=== PATIENT | female | born 2000 | race Caucasian/White ===

== ENCOUNTER 2022-05-18 10:55 | Inpatient (IN) | payer SELFPAY ==
[2022-05-18] MEDS ORDERED: Ketorolac 30 MG/ML SDV IVPUSH ONE (11:07)
[2022-05-18] MEDS ORDERED: Albuterol/Ipratropium 3.0-0.5 MG/3 ML Neb Soln NEB ONE ×3 (11:07→13:44)
[2022-05-18] MEDS ORDERED: Sodium Chloride 0.9% 10 ML Syringe FLUSH PRN ×2 (11:08→14:18)
[2022-05-18] MEDS ORDERED: methylPREDNISolone Sodium Succinate 125 MG/2 ML SDV IVPUSH ONE (11:08)
[2022-05-18] MEDS ORDERED: Albuterol/Ipratropium 3.0-0.5 MG/3 ML Neb Soln ONE ×2 (11:10→13:45)
[2022-05-18] MEDS ORDERED: Magnesium Sulfate/Water 2 GM in Premix Bag 1 BAG IV ONE (11:17)
[2022-05-18] MEDS ORDERED: Albuterol 0.083% 2.5 MG/3 ML Neb Soln NEB ONE ×3 (11:35→13:23)
[2022-05-18] MEDS ORDERED: Albuterol 0.083% 2.5 MG/3 ML Neb Soln ONE (11:37)
[2022-05-18 11:56] LABS: ESTIMATED GFR 94 mL/min (>60)
[2022-05-18] MEDS ORDERED: LORazepam 2 MG/ML SDV IVPUSH ONE (12:12)
[2022-05-18 14:08] LABS: CORONAVIRUS COVID-19 NAA NEGATIVE (NEGATIVE)
[2022-05-18] MEDS ORDERED: Iopamidol 755 Mg/ML 100 ML Bottle IVPUSH ONE (14:18)
[2022-05-18] MEDS ORDERED: Sodium Chloride 0.9% 100 ML IV SCH (14:30)
[2022-05-18] MEDS ORDERED: Sodium Chloride 0.9% 1,000 ML IV STA (14:50)
[2022-05-18] MEDS ORDERED: Docusate Sodium 100 MG Cap PO PRN (15:38)
[2022-05-18] MEDS ORDERED: Temazepam 7.5 MG Cap PO PRN (15:38)
[2022-05-18] MEDS ORDERED: Acetaminophen 325 MG Tab PO PRN (15:38)
[2022-05-18] MEDS ORDERED: Morphine 2 MG/ML SYRINGE IVPUSH PRN (15:38)
[2022-05-18] MEDS: Albuterol/Ipratropium 3.0-0.5 MG/3 ML Neb Soln NEB PRN ×2 (16:53→21:08)
[2022-05-18] MEDS: methylPREDNISolone Sodium Succinate 125 MG/2 ML SDV IVPUSH SCH ×2 (17:03→22:01)
[2022-05-18] MEDS: Albuterol 0.083% 2.5 MG/3 ML Neb Soln NEB PRN (18:34)
[2022-05-18] MEDS: LORazepam 2 MG/ML SDV IVPUSH PRN (19:47)
[2022-05-18] MEDS ORDERED: Sodium Chloride 0.9% 1,000 ML ONE (19:56)
[2022-05-18] MEDS: Sodium Chloride 0.9% 1,000 ML IV SCH (19:59)
[2022-05-18] MEDS: Aluminum Hydroxide/Magnesium Hydroxide/Simethicone Susp 30 ML Cup PO PRN (21:40)
[2022-05-19] MEDS: Albuterol 0.083% 2.5 MG/3 ML Neb Soln NEB PRN (00:32)
[2022-05-19] MEDS: LORazepam 2 MG/ML SDV IVPUSH PRN ×4 (00:39→21:50)
[2022-05-19] MEDS: Sodium Chloride 0.9% 1,000 ML IV SCH (03:37)
[2022-05-19] MEDS: methylPREDNISolone Sodium Succinate 125 MG/2 ML SDV IVPUSH SCH ×4 (04:02→23:26)
[2022-05-19] MEDS: Albuterol/Ipratropium 3.0-0.5 MG/3 ML Neb Soln NEB PRN ×5 (04:42→21:36)
[2022-05-19] MEDS ORDERED: Sodium Polystyrene Sulfonate 15 GM/60 ML Susp 60 ML Bot PO ONE (08:00)
[2022-05-19] MEDS: oxyCODONE 5 MG Tab PO PRN ×2 (08:08→16:19)
[2022-05-19] MEDS: Enoxaparin 40 MG/0.4 ML Syringe SUBCUT SCH (08:09)
[2022-05-19] MEDS: Nicotine 14 MG/24 Hr Patch TRDERM SCH (09:56)
[2022-05-20] MEDS: Albuterol/Ipratropium 3.0-0.5 MG/3 ML Neb Soln NEB PRN ×4 (04:02→19:36)
[2022-05-20] MEDS: methylPREDNISolone Sodium Succinate 125 MG/2 ML SDV IVPUSH SCH ×4 (06:04→22:49)
[2022-05-20] MEDS: Enoxaparin 40 MG/0.4 ML Syringe SUBCUT SCH (09:42)
[2022-05-20] MEDS: Nicotine 14 MG/24 Hr Patch TRDERM SCH (09:42)
[2022-05-20] MEDS: Aluminum Hydroxide/Magnesium Hydroxide/Simethicone Susp 30 ML Cup PO PRN (15:08)
[2022-05-20] MEDS: LORazepam 2 MG/ML SDV IVPUSH PRN ×2 (17:50→23:17)
[2022-05-21] MEDS: methylPREDNISolone Sodium Succinate 125 MG/2 ML SDV IVPUSH SCH ×2 (04:18→12:09)
[2022-05-21] MEDS: Aluminum Hydroxide/Magnesium Hydroxide/Simethicone Susp 30 ML Cup PO PRN (04:18)
[2022-05-21] MEDS: Albuterol/Ipratropium 3.0-0.5 MG/3 ML Neb Soln NEB PRN (09:04)
[2022-05-21] MEDS: Enoxaparin 40 MG/0.4 ML Syringe SUBCUT SCH (09:46)
[2022-05-21] MEDS: Nicotine 14 MG/24 Hr Patch TRDERM SCH (09:47)
[2022-05-21] MEDS ORDERED: Albuterol 6.7 GM Inhaler INH PRN (11:14)
[2022-05-21] MEDS: oxyCODONE 5 MG Tab PO PRN (12:22)
[2022-05-22] MEDS ORDERED: predniSONE 10 MG Tab PO SCH (07:00)
== END 2022-05-21 12:55 | disposition home or self-care (01) | DRG 205 ==
LOC: JD.ED 10:55 → JD.ICU 15:46 → JD.MS 05-20 12:51 → JD.ICU 05-20 16:25 → JD.MS 05-20 16:26
PROVIDERS: ADMIT Internal Medicine; ATTEND Internal Medicine
PROC: 5A09357 Assistance with Respiratory Ventilation, Less than 24 Consecutive Hours, Continuous Positive Airway Pressure (ICD-10-PCS; principal; 2022-05-18)
DX: U07.0 Vaping-related disorder (principal); J96.01 Acute respiratory failure with hypoxia; Z68.41 Body mass index [BMI] 40.0-44.9, adult; J45.41 Moderate persistent asthma with (acute) exacerbation; E66.01 Morbid (severe) obesity due to excess calories; F41.9 Anxiety disorder, unspecified; D72.829 Elevated white blood cell count, unspecified; T38.0X5A Adverse effect of glucocorticoids and synthetic analogues, initial encounter; F12.20 Cannabis dependence, uncomplicated; F41.0 Panic disorder [episodic paroxysmal anxiety]; Z20.822 Contact with and (suspected) exposure to COVID-19; Z87.891 Personal history of nicotine dependence; Z79.899 Other long term (current) drug therapy
CPT/HCPCS: 0241U; 36415; 36600; 71045; 71045-26; 71275; 71275-26; 80053; 81001; 82803; 84703; 85025; 85027; 85379; 86140; 94640; 94660; 94760; 96365; 96375; 99285-25; A9270-GY; J1650; J1885; J2060; J2930; J3475; J3490; J7030; J7620-GY; Q9967

== ENCOUNTER 2022-11-08 08:44 | Inpatient (IN) | payer SELFPAY ==
[2022-11-08] MEDS ORDERED: Albuterol/Ipratropium 3.0-0.5 MG/3 ML Neb Soln NEB ONE (09:07)
[2022-11-08] MEDS ORDERED: Albuterol 0.083% 2.5 MG/3 ML Neb Soln NEB ONE ×4 (10:29→13:15)
[2022-11-08] MEDS ORDERED: predniSONE 20 MG Tab PO STA (11:05)
[2022-11-08] MEDS ORDERED: Magnesium Sulfate/Water 2 GM in Premix Bag 1 BAG IV ONE (11:59)
[2022-11-08] MEDS ORDERED: Acetaminophen 325 MG Tab PO PRN (13:03)
[2022-11-08] MEDS ORDERED: Sodium Chloride 0.9% 10 ML Syringe FLUSH PRN (13:03)
[2022-11-08 14:08] LABS: BASOPHILS ABSOLUTE AUTO 0.1 K/mm3 (0.0-0.2); BASOPHILS PERCENT AUTO 0.9 % (0.0-1.0); EOSINOPHILS PERCENT AUTO 9.6 % (0.0-6.0); HEMATOCRIT 41.2 % (37.0-47.0); HEMOGLOBIN 14.3 gm/dl (12.0-16.0); IMMATURE GRAN ABSOLUTE AUTO 0.02 K/mm3 (0.00-0.05); IMMATURE GRAN PERCENT AUTO 0.2 % (0.0-0.4); LYMPHOCYTES ABSOLUTE AUTO 1.8 K/mm3 (1.0-4.8); LYMPHOCYTES PERCENT AUTO 18.4 % (24.0-44.0); MEAN CORPUSCULAR HEMOGLOBIN 30.6 pg (28.0-32.0); MEAN CORPUSCULAR HGB CONC 34.7 g/dl (32.0-36.0); MEAN CORPUSCULAR VOLUME 88.2 fl (83.0-99.0); MEAN PLATELET VOLUME 9.4 fl (9.4-12.3); MONOCYTES ABSOLUTE AUTO 0.6 K/mm3 (0.0-0.8); MONOCYTES PERCENT AUTO 6.4 % (0.0-8.0); NEUTROPHILS ABSOLUTE AUTO 6.4 K/mm3 (1.8-7.7); NEUTROPHILS PERCENT AUTO 64.5 % (41.0-71.0); PLATELET COUNT,PLT 325 K/mm3 (150-400); RED BLOOD CELL COUNT 4.67 M/mm3 (4.10-5.30); WHITE BLOOD CELL COUNT,WBC 9.91 K/mm3 (3.9-11.3)
[2022-11-08 14:17] LABS: A/G RATIO 1.3 (1-2); ALBUMIN 3.9 g/dl (3.4-5.0); ANION GAP 13.9 (5-15); BUN/CREATININE RATIO 7.5 (14-18); CALCIUM 8.9 mg/dL (8.5-10.1); CREATININE 0.8 mg/dL (0.55-1.02); EST CRCL DRUG DOSING (CG) 100.1 mL/min; POTASSIUM,K 3.9 mEq/L (3.5-5.1)
[2022-11-08 14:26] LABS: HEMOGLOBIN A1C 5.5 %
[2022-11-08] MEDS: methylPREDNISolone Sodium Succinate 125 MG/2 ML SDV IVPUSH SCH ×2 (14:37→19:47)
[2022-11-08] MEDS: Mometasone Furoate HFA 200 mcg/Puff 13 GM Inhaler INH SCH ×2 (15:02→20:32)
[2022-11-08] MEDS: Albuterol/Ipratropium 3.0-0.5 MG/3 ML Neb Soln NEB SCH ×2 (15:02→20:31)
[2022-11-08] MEDS: Nicotine 14 MG/24 Hr Patch TRDERM SCH (16:43)
[2022-11-08] MEDS ORDERED: Betamethasone Dipropionate/Clotrimazole 0.05-1% Crm 15 GM Tube TOP SCH (18:00)
[2022-11-09] MEDS: Albuterol/Ipratropium 3.0-0.5 MG/3 ML Neb Soln NEB SCH ×4 (03:02→20:43)
[2022-11-09] MEDS: methylPREDNISolone Sodium Succinate 125 MG/2 ML SDV IVPUSH SCH ×4 (03:33→21:27)
[2022-11-09] MEDS: Mometasone Furoate HFA 200 mcg/Puff 13 GM Inhaler INH SCH ×2 (05:26→20:50)
[2022-11-09 05:58] LABS: BASOPHILS PERCENT AUTO 0.1 % (0.0-1.0); HEMATOCRIT 39.6 % (37.0-47.0); HEMOGLOBIN 14.1 gm/dl (12.0-16.0); IMMATURE GRAN ABSOLUTE AUTO 0.15 K/mm3 (0.00-0.05); IMMATURE GRAN PERCENT AUTO 0.8 % (0.0-0.4); LYMPHOCYTES ABSOLUTE AUTO 0.7 K/mm3 (1.0-4.8); LYMPHOCYTES PERCENT AUTO 3.8 % (24.0-44.0); MEAN CORPUSCULAR HEMOGLOBIN 30.7 pg (28.0-32.0); MEAN CORPUSCULAR HGB CONC 35.6 g/dl (32.0-36.0); MEAN CORPUSCULAR VOLUME 86.1 fl (83.0-99.0); MEAN PLATELET VOLUME 9.6 fl (9.4-12.3); MONOCYTES ABSOLUTE AUTO 0.2 K/mm3 (0.0-0.8); MONOCYTES PERCENT AUTO 1.2 % (0.0-8.0); NEUTROPHILS ABSOLUTE AUTO 18.3 K/mm3 (1.8-7.7); NEUTROPHILS PERCENT AUTO 94.1 % (41.0-71.0); PLATELET COUNT,PLT 303 K/mm3 (150-400); WHITE BLOOD CELL COUNT,WBC 19.42 K/mm3 (3.9-11.3)
[2022-11-09 06:14] LABS: ANION GAP 16.2 (5-15); CREATININE 0.7 mg/dL (0.55-1.02); EST CRCL DRUG DOSING (CG) 114.4 mL/min; POTASSIUM,K 4.2 mEq/L (3.5-5.1)
[2022-11-09 06:45] LABS: SLIDE REVIEW ABNORMAL SMEAR
[2022-11-09] MEDS: Enoxaparin 40 MG/0.4 ML Syringe SUBCUT SCH (08:45)
[2022-11-09] MEDS: Betamethasone Dipropionate/Clotrimazole 0.05-1% Crm 15 GM Tube TOP SCH ×3 (09:57→21:38)
[2022-11-09] MEDS ORDERED: Calcium Carbonate 500 MG Tab.Chew PO PRN (11:46)
[2022-11-09] MEDS: Nicotine 14 MG/24 Hr Patch TRDERM SCH (16:07)
[2022-11-09] MEDS: Amoxicillin 500 MG Cap PO SCH ×2 (16:20→21:27)
[2022-11-09] MEDS: Saccharomyces Boulardii (Probiotic) 250 MG Cap PO SCH (21:27)
[2022-11-10] MEDS: Albuterol/Ipratropium 3.0-0.5 MG/3 ML Neb Soln NEB SCH ×2 (04:12→08:55)
[2022-11-10] MEDS: Mometasone Furoate HFA 200 mcg/Puff 13 GM Inhaler INH SCH (06:16)
[2022-11-10 06:41] LABS: BASOPHILS PERCENT AUTO 0.1 % (0.0-1.0); HEMATOCRIT 40.9 % (37.0-47.0); HEMOGLOBIN 14.1 gm/dl (12.0-16.0); IMMATURE GRAN ABSOLUTE AUTO 0.32 K/mm3 (0.00-0.05); IMMATURE GRAN PERCENT AUTO 1.4 % (0.0-0.4); LYMPHOCYTES PERCENT AUTO 4.5 % (24.0-44.0); MEAN CORPUSCULAR HEMOGLOBIN 31.1 pg (28.0-32.0); MEAN CORPUSCULAR HGB CONC 34.5 g/dl (32.0-36.0); MEAN CORPUSCULAR VOLUME 90.1 fl (83.0-99.0); MEAN PLATELET VOLUME 9.8 fl (9.4-12.3); MONOCYTES ABSOLUTE AUTO 0.6 K/mm3 (0.0-0.8); MONOCYTES PERCENT AUTO 2.6 % (0.0-8.0); NEUTROPHILS ABSOLUTE AUTO 20.9 K/mm3 (1.8-7.7); NEUTROPHILS PERCENT AUTO 91.4 % (41.0-71.0); PLATELET COUNT,PLT 318 K/mm3 (150-400); RED BLOOD CELL COUNT 4.54 M/mm3 (4.10-5.30); WHITE BLOOD CELL COUNT,WBC 22.83 K/mm3 (3.9-11.3)
[2022-11-10 06:59] LABS: ANION GAP 16.1 (5-15); BUN/CREATININE RATIO 17.5 (14-18); CALCIUM 9.1 mg/dL (8.5-10.1); CREATININE 0.8 mg/dL (0.55-1.02); EST CRCL DRUG DOSING (CG) 100.1 mL/min; POTASSIUM,K 4.1 mEq/L (3.5-5.1)
[2022-11-10] MEDS ORDERED: predniSONE 20 MG Tab PO SCH (07:00)
[2022-11-10 07:15] LABS: SLIDE REVIEW ABNORMAL SMEAR
[2022-11-10] MEDS: Amoxicillin 500 MG Cap PO SCH (08:13)
[2022-11-10] MEDS: Enoxaparin 40 MG/0.4 ML Syringe SUBCUT SCH (08:13)
[2022-11-10] MEDS: Betamethasone Dipropionate/Clotrimazole 0.05-1% Crm 15 GM Tube TOP SCH (08:13)
[2022-11-10] MEDS: Saccharomyces Boulardii (Probiotic) 250 MG Cap PO SCH (08:13)
[2022-11-10] MEDS: Nicotine 14 MG/24 Hr Patch TRDERM SCH (17:20)
== END 2022-11-10 12:50 | disposition home or self-care (01) | DRG 202 ==
LOC: JD.ED 08:44 → JD.MS 14:13
PROVIDERS: ADMIT Emergency Medicine; ATTEND Emergency Medicine
DX: J45.51 Severe persistent asthma with (acute) exacerbation (principal); Z68.41 Body mass index [BMI] 40.0-44.9, adult; F17.210 Nicotine dependence, cigarettes, uncomplicated; E66.01 Morbid (severe) obesity due to excess calories; L30.8 Other specified dermatitis; F41.9 Anxiety disorder, unspecified; F32.A Depression, unspecified; Z20.822 Contact with and (suspected) exposure to COVID-19; Z79.51 Long term (current) use of inhaled steroids; Z79.899 Other long term (current) drug therapy
CPT/HCPCS: 36415; 80048; 80053; 83036; 83735; 85025; 87070; 87077; 87186; 87205; 87804; 87807; 94640; 94761; 94762; 96365; 96366; 99285; 99285-25; A9270-GY; J1650; J2930; J3475; J7512; J7620-GY; U0002

== ENCOUNTER 2022-12-02 23:38 | Emergency (ER) | payer BC ==
[2022-12-03] MEDS ORDERED: predniSONE 10 MG Tab PO ONE ×2 (00:06→04:34)
[2022-12-03] MEDS ORDERED: Albuterol/Ipratropium 3.0-0.5 MG/3 ML Neb Soln NEB ONE (00:06)
[2022-12-03] MEDS ORDERED: Albuterol 0.083% 2.5 MG/3 ML Neb Soln NEB ONE ×2 (00:40→02:30)
[2022-12-03] MEDS ORDERED: Albuterol 6.7 GM Inhaler INH ONE (01:01)
[2022-12-03 01:51] LABS: CORONAVIRUS COVID-19 NAA NEGATIVE (NEGATIVE); INFLUENZA A NAA NEGATIVE (NEGATIVE); RESPIRATORY SYNCYTIAL VIR NAA NEGATIVE (NEGATIVE)
== END 2022-12-03 04:48 | disposition home or self-care (01) ==
LOC: JD.ED 23:38
DX: J45.909 Unspecified asthma, uncomplicated (principal); E66.9 Obesity, unspecified; Z68.41 Body mass index [BMI] 40.0-44.9, adult; Z87.891 Personal history of nicotine dependence; Z20.822 Contact with and (suspected) exposure to COVID-19
CPT/HCPCS: 0241U; 71046; 94640; 99285; A9270; J7512; 99284; J7620-GY

== ENCOUNTER 2022-12-18 04:55 | Inpatient (IN) | payer BC ==
[2022-12-18] MEDS ORDERED: Sodium Chloride 0.9% 10 ML Syringe FLUSH PRN (05:10)
[2022-12-18] MEDS ORDERED: methylPREDNISolone Sodium Succinate 125 MG/2 ML SDV IVPUSH ONE (05:16)
[2022-12-18] MEDS: Albuterol 0.083% 2.5 MG/3 ML Neb Soln NEB PRN ×5 (05:35→20:30)
[2022-12-18 05:44] LABS: BASOPHILS ABSOLUTE AUTO 0.1 K/mm3 (0.0-0.2); BASOPHILS PERCENT AUTO 0.4 % (0.0-1.0); EOSINOPHILS ABSOLUTE AUTO 0.7 K/mm3 (0.0-0.4); EOSINOPHILS PERCENT AUTO 5.1 % (0.0-6.0); HEMATOCRIT 44.1 % (37.0-47.0); HEMOGLOBIN 15.3 gm/dl (12.0-16.0); IMMATURE GRAN ABSOLUTE AUTO 0.04 K/mm3 (0.00-0.05); IMMATURE GRAN PERCENT AUTO 0.3 % (0.0-0.4); LYMPHOCYTES ABSOLUTE AUTO 0.8 K/mm3 (1.0-4.8); LYMPHOCYTES PERCENT AUTO 6.2 % (24.0-44.0); MEAN CORPUSCULAR HEMOGLOBIN 31.3 pg (28.0-32.0); MEAN CORPUSCULAR HGB CONC 34.7 g/dl (32.0-36.0); MEAN CORPUSCULAR VOLUME 90.2 fl (83.0-99.0); MEAN PLATELET VOLUME 9.2 fl (9.4-12.3); MONOCYTES ABSOLUTE AUTO 0.7 K/mm3 (0.0-0.8); MONOCYTES PERCENT AUTO 4.8 % (0.0-8.0); NEUTROPHILS ABSOLUTE AUTO 11.3 K/mm3 (1.8-7.7); NEUTROPHILS PERCENT AUTO 83.2 % (41.0-71.0); PLATELET COUNT,PLT 236 K/mm3 (150-400); RED BLOOD CELL COUNT 4.89 M/mm3 (4.10-5.30); WHITE BLOOD CELL COUNT,WBC 13.62 K/mm3 (3.9-11.3)
[2022-12-18 05:55] LABS: A/G RATIO 1.2 (1-2); BILIRUBIN TOTAL 0.9 mg/dL (0.2-1.0); BUN/CREATININE RATIO 15.6 (14-18); CALCIUM 8.8 mg/dL (8.5-10.1); CREATININE 0.9 mg/dL (0.55-1.02); EST CRCL DRUG DOSING (CG) 99.74 mL/min; MAGNESIUM 1.6 mg/dL (1.8-2.4); PROTEIN TOTAL,TP 7.4 g/dl (6.4-8.2)
[2022-12-18 06:00] LABS: CORONAVIRUS COVID-19 NAA NEGATIVE (NEGATIVE); INFLUENZA A NAA NEGATIVE (NEGATIVE); RESPIRATORY SYNCYTIAL VIR NAA NEGATIVE (NEGATIVE)
[2022-12-18] MEDS ORDERED: Magnesium Sulfate/Water 2 GM in Premix Bag 1 BAG IV ONE (06:56)
[2022-12-18] MEDS: Albuterol/Ipratropium 3.0-0.5 MG/3 ML Neb Soln NEB PRN ×4 (07:00→22:14)
[2022-12-18] MEDS ORDERED: Acetaminophen 325 MG Tab PO ONE (07:08)
[2022-12-18] MEDS ORDERED: Metoclopramide 10 MG/2 ML SDV IVPUSH ONE (07:09)
[2022-12-18] MEDS ORDERED: Albuterol/Ipratropium 3.0-0.5 MG/3 ML Neb Soln NEB ONE (07:51)
[2022-12-18] MEDS ORDERED: Albuterol/Ipratropium 3.0-0.5 MG/3 ML Neb Soln NEB PRN (07:55)
[2022-12-18] MEDS ORDERED: Albuterol 0.083% 2.5 MG/3 ML Neb Soln NEB ONE (07:57)
[2022-12-18] MEDS: Heparin Sodium 5,000 Units/ML Vial SUBCUT SCH ×2 (10:53→17:29)
[2022-12-18] MEDS: methylPREDNISolone Sodium Succinate 125 MG/2 ML SDV IVPUSH SCH ×2 (10:53→17:29)
[2022-12-18] MEDS ORDERED: LORazepam 0.5 MG Tab PO ONE (11:55)
[2022-12-18] MEDS: Nicotine 14 MG/24 Hr Patch TRDERM SCH (12:07)
[2022-12-18 13:46] LABS: BASE EXCESS ARTERIAL -8.4 (-2-2.0); BICARBONATE,ARTERIAL 15.8 meq/L (22.0-26.0); PCO2 ARTERIAL 30.4 mmHg (35.0-45.0)
[2022-12-18] MEDS: LORazepam 2 MG/ML SDV IVPUSH PRN ×2 (14:09→19:52)
[2022-12-18] MEDS: Mometasone Furoate HFA 200 mcg/Puff 13 GM Inhaler INH SCH (20:29)
[2022-12-18] MEDS: Saccharomyces Boulardii (Probiotic) 250 MG Cap PO SCH (21:02)
[2022-12-18] MEDS ORDERED: LORazepam 1 MG Tab PO ONE (22:09)
[2022-12-18] MEDS: Acetaminophen 325 MG Tab PO PRN (22:18)
[2022-12-19] MEDS: Albuterol 0.083% 2.5 MG/3 ML Neb Soln NEB PRN ×2 (00:39→05:46)
[2022-12-19] MEDS: Heparin Sodium 5,000 Units/ML Vial SUBCUT SCH ×3 (02:56→17:22)
[2022-12-19] MEDS: methylPREDNISolone Sodium Succinate 125 MG/2 ML SDV IVPUSH SCH ×3 (02:56→17:22)
[2022-12-19] MEDS: LORazepam 2 MG/ML SDV IVPUSH PRN ×4 (02:56→23:47)
[2022-12-19] MEDS: Albuterol/Ipratropium 3.0-0.5 MG/3 ML Neb Soln NEB PRN (03:24)
[2022-12-19] MEDS: Mometasone Furoate HFA 200 mcg/Puff 13 GM Inhaler INH SCH ×2 (05:46→19:59)
[2022-12-19 06:32] LABS: HEMATOCRIT 40.1 % (37.0-47.0); HEMOGLOBIN 13.9 gm/dl (12.0-16.0); MEAN CORPUSCULAR HEMOGLOBIN 30.4 pg (28.0-32.0); MEAN CORPUSCULAR HGB CONC 34.7 g/dl (32.0-36.0); MEAN CORPUSCULAR VOLUME 87.7 fl (83.0-99.0); MEAN PLATELET VOLUME 9.7 fl (9.4-12.3); PLATELET COUNT,PLT 253 K/mm3 (150-400); RED BLOOD CELL COUNT 4.57 M/mm3 (4.10-5.30); WHITE BLOOD CELL COUNT,WBC 21.97 K/mm3 (3.9-11.3)
[2022-12-19 07:04] LABS: A/G RATIO 1.1 (1-2); ALBUMIN 3.9 g/dl (3.4-5.0); ANION GAP 17.3 (5-15); BUN/CREATININE RATIO 18.8 (14-18); CALCIUM 9.1 mg/dL (8.5-10.1); CREATININE 0.8 mg/dL (0.55-1.02); EST CRCL DRUG DOSING (CG) 100.1 mL/min; POTASSIUM,K 4.3 mEq/L (3.5-5.1); PROTEIN TOTAL,TP 7.5 g/dl (6.4-8.2)
[2022-12-19] MEDS ORDERED: Ipratropium 0.02% 0.5 MG/2.5 ML Neb Soln ONE (08:20)
[2022-12-19] MEDS ORDERED: Levalbuterol HCl 1.25 MG/0.5 ML Neb ONE (08:20)
[2022-12-19] MEDS: Ipratropium 0.02% 0.5 MG/2.5 ML Neb Soln NEB PRN ×2 (08:22→12:49)
[2022-12-19] MEDS: Levalbuterol HCl 1.25 MG/3 ML Neb NEB PRN ×6 (08:23→23:15)
[2022-12-19] MEDS: Loratadine 10 MG Tab PO SCH (08:28)
[2022-12-19] MEDS: Montelukast 10 MG Tab PO SCH (08:28)
[2022-12-19] MEDS: Saccharomyces Boulardii (Probiotic) 250 MG Cap PO SCH ×2 (08:28→20:31)
[2022-12-19] MEDS ORDERED: Sodium Chloride 0.9% 10 ML Syringe FLUSH PRN (08:47)
[2022-12-19] MEDS ORDERED: Iopamidol 755 Mg/ML 100 ML Bottle IVPUSH ONE (08:47)
[2022-12-19] MEDS ORDERED: Sodium Chloride 0.9% 45 ML IV SCH (09:00)
[2022-12-19] MEDS: Nicotine 14 MG/24 Hr Patch TRDERM SCH (12:36)
[2022-12-19] MEDS: cefTRIAXone 2 GM in Sodium Chloride 0.9% 100 ML IV SCH (13:26)
[2022-12-19] MEDS ORDERED: Temazepam 15 MG Cap PO ONE (20:17)
[2022-12-20] MEDS: methylPREDNISolone Sodium Succinate 125 MG/2 ML SDV IVPUSH SCH ×3 (03:02→18:11)
[2022-12-20] MEDS: Heparin Sodium 5,000 Units/ML Vial SUBCUT SCH ×3 (03:02→18:11)
[2022-12-20] MEDS: Ipratropium 0.02% 0.5 MG/2.5 ML Neb Soln NEB PRN ×4 (03:26→20:15)
[2022-12-20] MEDS: Levalbuterol HCl 1.25 MG/3 ML Neb NEB PRN ×5 (05:26→18:13)
[2022-12-20] MEDS: Mometasone Furoate HFA 200 mcg/Puff 13 GM Inhaler INH SCH ×2 (05:30→20:15)
[2022-12-20 06:11] LABS: BASOPHILS PERCENT AUTO 0.1 % (0.0-1.0); HEMATOCRIT 39.1 % (37.0-47.0); HEMOGLOBIN 13.5 gm/dl (12.0-16.0); IMMATURE GRAN ABSOLUTE AUTO 0.23 K/mm3 (0.00-0.05); LYMPHOCYTES ABSOLUTE AUTO 0.7 K/mm3 (1.0-4.8); LYMPHOCYTES PERCENT AUTO 3.3 % (24.0-44.0); MEAN CORPUSCULAR HEMOGLOBIN 30.8 pg (28.0-32.0); MEAN CORPUSCULAR HGB CONC 34.5 g/dl (32.0-36.0); MEAN CORPUSCULAR VOLUME 89.1 fl (83.0-99.0); MEAN PLATELET VOLUME 9.8 fl (9.4-12.3); MONOCYTES ABSOLUTE AUTO 0.6 K/mm3 (0.0-0.8); MONOCYTES PERCENT AUTO 2.7 % (0.0-8.0); NEUTROPHILS ABSOLUTE AUTO 20.6 K/mm3 (1.8-7.7); NEUTROPHILS PERCENT AUTO 92.9 % (41.0-71.0); PLATELET COUNT,PLT 242 K/mm3 (150-400); RED BLOOD CELL COUNT 4.39 M/mm3 (4.10-5.30); WHITE BLOOD CELL COUNT,WBC 22.25 K/mm3 (3.9-11.3)
[2022-12-20 06:31] LABS: ALBUMIN 3.5 g/dl (3.4-5.0); ANION GAP 15.3 (5-15); BILIRUBIN TOTAL 0.7 mg/dL (0.2-1.0); C-REACTIVE PROTEIN 2.3 mg/dL (<1.0); CALCIUM 8.9 mg/dL (8.5-10.1); CREATININE 0.8 mg/dL (0.55-1.02); EST CRCL DRUG DOSING (CG) 100.1 mL/min; POTASSIUM,K 4.3 mEq/L (3.5-5.1)
[2022-12-20 06:56] LABS: SLIDE REVIEW ABNORMAL SMEAR
[2022-12-20] MEDS: Saccharomyces Boulardii (Probiotic) 250 MG Cap PO SCH ×2 (08:02→20:30)
[2022-12-20] MEDS: Montelukast 10 MG Tab PO SCH (08:02)
[2022-12-20] MEDS: Loratadine 10 MG Tab PO SCH (08:02)
[2022-12-20] MEDS: LORazepam 2 MG/ML SDV IVPUSH PRN ×2 (08:22→17:07)
[2022-12-20] MEDS: cefTRIAXone 2 GM in Sodium Chloride 0.9% 100 ML IV SCH (12:31)
[2022-12-20] MEDS: Nicotine 14 MG/24 Hr Patch TRDERM SCH (12:32)
[2022-12-20] MEDS: Temazepam 15 MG Cap PO PRN (20:30)
[2022-12-21] MEDS: methylPREDNISolone Sodium Succinate 125 MG/2 ML SDV IVPUSH SCH ×3 (02:21→18:13)
[2022-12-21] MEDS: Heparin Sodium 5,000 Units/ML Vial SUBCUT SCH ×3 (02:21→18:13)
[2022-12-21] MEDS: Levalbuterol HCl 1.25 MG/3 ML Neb NEB PRN ×6 (02:36→20:43)
[2022-12-21] MEDS: Mometasone Furoate HFA 200 mcg/Puff 13 GM Inhaler INH SCH ×2 (05:43→20:43)
[2022-12-21 06:11] LABS: BASOPHILS PERCENT AUTO 0.1 % (0.0-1.0); EOSINOPHILS PERCENT AUTO 0.1 % (0.0-6.0); HEMATOCRIT 39.9 % (37.0-47.0); HEMOGLOBIN 13.5 gm/dl (12.0-16.0); IMMATURE GRAN ABSOLUTE AUTO 0.15 K/mm3 (0.00-0.05); IMMATURE GRAN PERCENT AUTO 0.9 % (0.0-0.4); LYMPHOCYTES ABSOLUTE AUTO 0.7 K/mm3 (1.0-4.8); MEAN CORPUSCULAR HGB CONC 33.8 g/dl (32.0-36.0); MEAN CORPUSCULAR VOLUME 91.5 fl (83.0-99.0); MEAN PLATELET VOLUME 9.4 fl (9.4-12.3); MONOCYTES ABSOLUTE AUTO 0.4 K/mm3 (0.0-0.8); MONOCYTES PERCENT AUTO 2.2 % (0.0-8.0); NEUTROPHILS ABSOLUTE AUTO 15.3 K/mm3 (1.8-7.7); NEUTROPHILS PERCENT AUTO 92.7 % (41.0-71.0); PLATELET COUNT,PLT 238 K/mm3 (150-400); RED BLOOD CELL COUNT 4.36 M/mm3 (4.10-5.30); WHITE BLOOD CELL COUNT,WBC 16.55 K/mm3 (3.9-11.3)
[2022-12-21 06:31] LABS: SLIDE REVIEW ABNORMAL SMEAR
[2022-12-21] MEDS: Ipratropium 0.02% 0.5 MG/2.5 ML Neb Soln NEB PRN ×3 (07:54→16:17)
[2022-12-21] MEDS: Saccharomyces Boulardii (Probiotic) 250 MG Cap PO SCH ×2 (08:18→21:59)
[2022-12-21] MEDS: Loratadine 10 MG Tab PO SCH (08:18)
[2022-12-21] MEDS: Montelukast 10 MG Tab PO SCH (08:18)
[2022-12-21] MEDS: Nicotine 14 MG/24 Hr Patch TRDERM SCH (13:15)
[2022-12-21] MEDS: cefTRIAXone 2 GM in Sodium Chloride 0.9% 100 ML IV SCH (13:16)
[2022-12-21] MEDS: Acetaminophen 325 MG Tab PO PRN (17:09)
[2022-12-21] MEDS: Temazepam 15 MG Cap PO PRN (21:59)
[2022-12-22] MEDS: methylPREDNISolone Sodium Succinate 125 MG/2 ML SDV IVPUSH SCH ×3 (02:16→17:54)
[2022-12-22] MEDS: Heparin Sodium 5,000 Units/ML Vial SUBCUT SCH ×3 (02:16→17:54)
[2022-12-22] MEDS: Acetaminophen 325 MG Tab PO PRN ×2 (02:39→20:50)
[2022-12-22] MEDS: Levalbuterol HCl 1.25 MG/3 ML Neb NEB PRN ×5 (02:41→19:18)
[2022-12-22] MEDS: Mometasone Furoate HFA 200 mcg/Puff 13 GM Inhaler INH SCH ×3 (05:42→22:39)
[2022-12-22 06:55] LABS: BASOPHILS PERCENT AUTO 0.2 % (0.0-1.0); HEMATOCRIT 39.7 % (37.0-47.0); HEMOGLOBIN 13.6 gm/dl (12.0-16.0); IMMATURE GRAN ABSOLUTE AUTO 0.22 K/mm3 (0.00-0.05); IMMATURE GRAN PERCENT AUTO 1.7 % (0.0-0.4); LYMPHOCYTES ABSOLUTE AUTO 0.6 K/mm3 (1.0-4.8); LYMPHOCYTES PERCENT AUTO 4.8 % (24.0-44.0); MEAN CORPUSCULAR HEMOGLOBIN 30.6 pg (28.0-32.0); MEAN CORPUSCULAR HGB CONC 34.3 g/dl (32.0-36.0); MEAN CORPUSCULAR VOLUME 89.4 fl (83.0-99.0); MEAN PLATELET VOLUME 9.4 fl (9.4-12.3); MONOCYTES ABSOLUTE AUTO 0.4 K/mm3 (0.0-0.8); MONOCYTES PERCENT AUTO 3.4 % (0.0-8.0); NEUTROPHILS ABSOLUTE AUTO 11.5 K/mm3 (1.8-7.7); NEUTROPHILS PERCENT AUTO 89.9 % (41.0-71.0); PLATELET COUNT,PLT 244 K/mm3 (150-400); RED BLOOD CELL COUNT 4.44 M/mm3 (4.10-5.30); WHITE BLOOD CELL COUNT,WBC 12.74 K/mm3 (3.9-11.3)
[2022-12-22 07:11] LABS: ANION GAP 14.3 (5-15); BUN/CREATININE RATIO 23.8 (14-18); CALCIUM 8.8 mg/dL (8.5-10.1); CREATININE 0.8 mg/dL (0.55-1.02); EST CRCL DRUG DOSING (CG) 100.1 mL/min; POTASSIUM,K 4.3 mEq/L (3.5-5.1)
[2022-12-22] MEDS: Montelukast 10 MG Tab PO SCH (08:22)
[2022-12-22] MEDS: Loratadine 10 MG Tab PO SCH (08:22)
[2022-12-22] MEDS: Saccharomyces Boulardii (Probiotic) 250 MG Cap PO SCH ×2 (08:22→20:50)
[2022-12-22] MEDS: Nicotine 14 MG/24 Hr Patch TRDERM SCH (11:03)
[2022-12-22] MEDS: cefTRIAXone 2 GM in Sodium Chloride 0.9% 100 ML IV SCH (12:52)
[2022-12-22] MEDS: Topiramate 25 MG Tab PO SCH (20:50)
[2022-12-22] MEDS: Temazepam 15 MG Cap PO PRN (20:50)
[2022-12-23] MEDS ORDERED: Ondansetron 8 MG in Sodium Chloride 0.9% 50 ML IV ONE (01:33)
[2022-12-23] MEDS: methylPREDNISolone Sodium Succinate 125 MG/2 ML SDV IVPUSH SCH ×2 (01:36→10:43)
[2022-12-23] MEDS: Heparin Sodium 5,000 Units/ML Vial SUBCUT SCH ×2 (01:37→10:43)
[2022-12-23] MEDS: Levalbuterol HCl 1.25 MG/3 ML Neb NEB PRN ×3 (01:40→11:20)
[2022-12-23] MEDS ORDERED: Ondansetron 4 MG/2 ML SDV ONE (01:50)
[2022-12-23 05:30] LABS: BASOPHILS PERCENT AUTO 0.2 % (0.0-1.0); HEMATOCRIT 40.7 % (37.0-47.0); IMMATURE GRAN ABSOLUTE AUTO 0.22 K/mm3 (0.00-0.05); IMMATURE GRAN PERCENT AUTO 1.7 % (0.0-0.4); LYMPHOCYTES ABSOLUTE AUTO 0.7 K/mm3 (1.0-4.8); LYMPHOCYTES PERCENT AUTO 5.5 % (24.0-44.0); MEAN CORPUSCULAR HEMOGLOBIN 31.3 pg (28.0-32.0); MEAN CORPUSCULAR HGB CONC 34.4 g/dl (32.0-36.0); MEAN CORPUSCULAR VOLUME 90.8 fl (83.0-99.0); MEAN PLATELET VOLUME 9.7 fl (9.4-12.3); MONOCYTES ABSOLUTE AUTO 0.6 K/mm3 (0.0-0.8); MONOCYTES PERCENT AUTO 4.4 % (0.0-8.0); NEUTROPHILS ABSOLUTE AUTO 11.3 K/mm3 (1.8-7.7); NEUTROPHILS PERCENT AUTO 88.2 % (41.0-71.0); PLATELET COUNT,PLT 232 K/mm3 (150-400); RED BLOOD CELL COUNT 4.48 M/mm3 (4.10-5.30); WHITE BLOOD CELL COUNT,WBC 12.83 K/mm3 (3.9-11.3)
[2022-12-23 05:47] LABS: ALBUMIN 3.1 g/dl (3.4-5.0); BILIRUBIN TOTAL 0.4 mg/dL (0.2-1.0); CALCIUM 8.4 mg/dL (8.5-10.1); CREATININE 0.8 mg/dL (0.55-1.02); EST CRCL DRUG DOSING (CG) 100.1 mL/min; PROTEIN TOTAL,TP 6.2 g/dl (6.4-8.2)
[2022-12-23] MEDS: Loratadine 10 MG Tab PO SCH (08:24)
[2022-12-23] MEDS: Saccharomyces Boulardii (Probiotic) 250 MG Cap PO SCH (08:24)
[2022-12-23] MEDS: Montelukast 10 MG Tab PO SCH (08:24)
[2022-12-23] MEDS: Topiramate 25 MG Tab PO SCH (08:24)
[2022-12-23] MEDS: Mometasone Furoate HFA 200 mcg/Puff 13 GM Inhaler INH SCH (08:30)
[2022-12-23] MEDS ORDERED: COENZYME Q10 100 MG PO SCH (09:00)
[2022-12-23] MEDS ORDERED: FLUoxetine 20 MG Cap PO SCH (09:00)
[2022-12-23] MEDS ORDERED: Cholecalciferol (Vitamin D3) 25 MCG Tab PO SCH (09:00)
[2022-12-23] MEDS ORDERED: Folic Acid 1 MG Tab PO SCH (09:00)
[2022-12-23] MEDS: Nicotine 14 MG/24 Hr Patch TRDERM SCH (11:11)
[2022-12-23] MEDS ORDERED: Cyanocobalamin (Vitamin B12) 1,000 MCG Tab PO SCH (15:00)
[2022-12-23] MEDS ORDERED: cloNIDine 0.1 MG Tab PO SCH (15:00)
== END 2022-12-23 12:43 | disposition home or self-care (01) | DRG 133 ==
LOC: JD.ED 04:55 → JD.MS 07:59 → JD.ICU 13:57
PROVIDERS: ADMIT Emergency Medicine; ATTEND Internal Medicine
DX: J96.01 Acute respiratory failure with hypoxia (principal); E66.01 Morbid (severe) obesity due to excess calories; U07.0 Vaping-related disorder; J45.51 Severe persistent asthma with (acute) exacerbation; Z68.42 Body mass index [BMI] 45.0-49.9, adult; F41.9 Anxiety disorder, unspecified; F31.60 Bipolar disorder, current episode mixed, unspecified; F43.10 Post-traumatic stress disorder, unspecified; F29 Unspecified psychosis not due to a substance or known physiological condition; F10.10 Alcohol abuse, uncomplicated; F90.0 Attention-deficit hyperactivity disorder, predominantly inattentive type; Z11.52 Encounter for screening for COVID-19; Z87.891 Personal history of nicotine dependence
CPT/HCPCS: 0241U; 36415; 36600; 71045; 71045-26; 71275; 71275-26; 80048; 80053; 82803; 83735; 85025; 85027; 86140; 94640; 94660; 94667; 94668; 94761; 96374; 96375; 99284; 99285-25; A9270-GY; J0696; J1644; J2060; J2405; J2765; J2930; J3475; J3490; J7612-GY; J7620-GY; Q9967

== ENCOUNTER 2023-03-24 14:02 | Emergency (ER) | payer BC ==
[2023-03-24] MEDS ORDERED: Sodium Chloride 0.9% 10 ML Syringe FLUSH PRN (14:15)
[2023-03-24] MEDS ORDERED: Sodium Chloride 0.9% 1,000 ML IV STA (14:15)
[2023-03-24] MEDS ORDERED: Iopamidol 612 MG/ML 100 ML Bottle IVPUSH ONE (14:28)
[2023-03-24 15:01] LABS: BASOPHILS PERCENT AUTO 0.6 % (0.0-1.0); EOSINOPHILS ABSOLUTE AUTO 0.7 K/mm3 (0.0-0.4); EOSINOPHILS PERCENT AUTO 10.6 % (0.0-6.0); HEMATOCRIT 41.5 % (37.0-47.0); HEMOGLOBIN 14.2 gm/dl (12.0-16.0); IMMATURE GRAN ABSOLUTE AUTO 0.01 K/mm3 (0.00-0.05); IMMATURE GRAN PERCENT AUTO 0.2 % (0.0-0.4); LYMPHOCYTES ABSOLUTE AUTO 1.6 K/mm3 (1.0-4.8); LYMPHOCYTES PERCENT AUTO 25.9 % (24.0-44.0); MEAN CORPUSCULAR HGB CONC 34.2 g/dl (32.0-36.0); MEAN CORPUSCULAR VOLUME 90.6 fl (83.0-99.0); MEAN PLATELET VOLUME 8.9 fl (9.4-12.3); MONOCYTES ABSOLUTE AUTO 0.5 K/mm3 (0.0-0.8); NEUTROPHILS ABSOLUTE AUTO 3.4 K/mm3 (1.8-7.7); NEUTROPHILS PERCENT AUTO 54.7 % (41.0-71.0); PLATELET COUNT,PLT 248 K/mm3 (150-400); RED BLOOD CELL COUNT 4.58 M/mm3 (4.10-5.30); WHITE BLOOD CELL COUNT,WBC 6.25 K/mm3 (3.9-11.3)
[2023-03-24 15:21] LABS: A/G RATIO 1.1 (1-2); ALBUMIN 3.6 g/dl (3.4-5.0); ANION GAP 11.5 (5-15); BILIRUBIN TOTAL 1.3 mg/dL (0.2-1.0); CALCIUM 8.5 mg/dL (8.5-10.1); EST CRCL DRUG DOSING (CG) 80.08 mL/min; POTASSIUM,K 3.5 mEq/L (3.5-5.1); PROTEIN TOTAL,TP 6.8 g/dl (6.4-8.2)
[2023-03-24 16:11] LABS: APPEARANCE,URINE SLT CLOUDY (Clear); BILIRUBIN,URINE NEGATIVE (Negative); COLOR,URINE YELLOW (Yellow); GLUCOSE,URINE NEGATIVE (Negative); KETONES,URINE NEGATIVE (Negative); LEUKOCYTE ESTERASE,URINE NEGATIVE (Negative); NITRITE,URINE NEGATIVE (Negative); OCCULT BLOOD,URINE NEGATIVE (Negative); PROTEIN,URINE NEGATIVE (Negative); UROBILINOGEN,URINE 0.2 (0.2-1.0)
[2023-03-24 16:17] LABS: BACTERIA,URINE FEW /hpf (FEW); MUCUS,URINE FEW /hpf (FEW); RBC,URINE 0-5 /hpf (0-5); WBC,URINE 0-5 /hpf (0-5)
== END 2023-03-24 16:53 | disposition home or self-care (01) ==
LOC: JD.ED 14:02
DX: R10.31 Right lower quadrant pain (principal); J45.909 Unspecified asthma, uncomplicated; E66.9 Obesity, unspecified; Z79.899 Other long term (current) drug therapy; Z68.42 Body mass index [BMI] 45.0-49.9, adult
CPT/HCPCS: 36415; 74177; 80053; 81001; 83690; 84703; 85025; 99284; J3490; J7030; Q9967

== ENCOUNTER 2023-04-04 12:21 | Emergency (ER) | payer BC ==
[2023-04-04] MEDS ORDERED: Albuterol/Ipratropium 3.0-0.5 MG/3 ML Neb Soln NEB ONE (12:40)
[2023-04-04 13:36] LABS: CORONAVIRUS COVID-19 NAA NEGATIVE (NEGATIVE); INFLUENZA A NAA NEGATIVE (NEGATIVE)
[2023-04-04] MEDS ORDERED: predniSONE 20 MG Tab PO ONE (13:49)
== END 2023-04-04 14:07 | disposition home or self-care (01) ==
LOC: JD.ED 12:21
DX: J45.41 Moderate persistent asthma with (acute) exacerbation (principal); E66.9 Obesity, unspecified; Z68.42 Body mass index [BMI] 45.0-49.9, adult
CPT/HCPCS: 0240U; 71046; 94640; 99285; J7512; 99284; J7620-GY

== ENCOUNTER 2023-06-10 20:45 | Emergency (ER) | payer BC ==
[2023-06-10 21:17] LABS: BASOPHILS ABSOLUTE AUTO 0.1 K/mm3 (0.0-0.2); EOSINOPHILS PERCENT AUTO 14.2 % (0.0-6.0); HEMATOCRIT 41.1 % (37.0-47.0); HEMOGLOBIN 14.4 gm/dl (12.0-16.0); IMMATURE GRAN ABSOLUTE AUTO 0.01 K/mm3 (0.00-0.05); IMMATURE GRAN PERCENT AUTO 0.1 % (0.0-0.4); LYMPHOCYTES ABSOLUTE AUTO 1.9 K/mm3 (1.0-4.8); LYMPHOCYTES PERCENT AUTO 25.5 % (24.0-44.0); MEAN CORPUSCULAR HEMOGLOBIN 31.2 pg (28.0-32.0); MEAN PLATELET VOLUME 8.9 fl (9.4-12.3); MONOCYTES ABSOLUTE AUTO 0.4 K/mm3 (0.0-0.8); NEUTROPHILS ABSOLUTE AUTO 3.9 K/mm3 (1.8-7.7); NEUTROPHILS PERCENT AUTO 53.2 % (41.0-71.0); PLATELET COUNT,PLT 241 K/mm3 (150-400); RED BLOOD CELL COUNT 4.62 M/mm3 (4.10-5.30)
[2023-06-10 21:41] LABS: INR 1.01; PROTHROMBIN TIME 10.8 SECONDS (9.7-12.0)
[2023-06-10 21:43] LABS: A/G RATIO 1.3 (1-2); ANION GAP 16.8 (5-15); BILIRUBIN TOTAL 1.1 mg/dL (0.2-1.0); CALCIUM 8.8 mg/dL (8.5-10.1); EST CRCL DRUG DOSING (CG) 79.4 mL/min; ETHANOL BLOOD MEDICAL 0.03 gm% (0.00); POTASSIUM,K 3.8 mEq/L (3.5-5.1); PROTEIN TOTAL,TP 7.1 g/dl (6.4-8.2); PTT,PARTIAL THROMBOPLSTIN TIME 30.1 SECONDS (21.7-31.4)
[2023-06-10 21:46] LABS: BARBITURATE SCREEN,URINE NEGATIVE (CUTOFF=200); BENZODIAZEPINES SCREEN,URINE NEGATIVE (CUTOFF=150); BUPRENORPHINE SCREEN,URINE NEGATIVE (CUTOFF=10); METHADONE SCREEN, URINE NEGATIVE (CUTOFF=200); METHAMPHETAMINES SCREEN, URINE NEGATIVE (CUTOFF=500); OXYCODONE SCREEN,URINE NEGATIVE (CUT0FF=100); THC SCREEN,URINE 20 NG/ML NEGATIVE (CUTOFF=50)
[2023-06-10 21:51] LABS: AMPHETAMINES SCREEN, URINE NEGATIVE (CUTOFF=500)
== END 2023-06-10 23:03 | disposition home or self-care (01) ==
LOC: JD.ED 20:45
DX: S06.0X0A Concussion without loss of consciousness, initial encounter (principal); J45.909 Unspecified asthma, uncomplicated; E11.9 Type 2 diabetes mellitus without complications; E66.9 Obesity, unspecified; Z79.51 Long term (current) use of inhaled steroids; Z86.16 Personal history of COVID-19; Z79.899 Other long term (current) drug therapy; Z68.42 Body mass index [BMI] 45.0-49.9, adult; W22.8XXA Striking against or struck by other objects, initial encounter
CPT/HCPCS: 36415; 70450; 70450-26; 72125; 72125-26; 80053; 80306; 80307; 81025; 85025; 85610; 85730; 99284

== ENCOUNTER 2023-06-17 17:06 | Emergency (ER) | payer BC ==
[2023-06-17] MEDS: methylPREDNISolone Sodium Succinate 125 MG/2 ML SDV IVPUSH ONE (17:29)
[2023-06-17] MEDS: Albuterol/Ipratropium 3.0-0.5 MG/3 ML Neb Soln NEB ONE ×2 (17:50→19:35)
[2023-06-17 18:01] LABS: A/G RATIO 1.4 (1-2); ALANINE AMINOTRANSFERASE,ALT 30 U/L (14-59); ALBUMIN 3.9 g/dl (3.4-5.0); ALKALINE PHOSPHATASE 66 U/L (46-116); ANION GAP 16.3 (5-15); ASPARTATE AMNIOTRANSFERASE,AST 19 U/L (15-37); BILIRUBIN TOTAL 0.8 mg/dL (0.2-1.0); BLOOD UREA NITROGEN,BUN 8 mg/dL (7-18); C-REACTIVE PROTEIN 0.39 mg/dL (<0.30); CALCIUM 8.4 mg/dL (8.5-10.1); CARBON DIOXIDE,CO2 22 mEq/L (21-32); CHLORIDE,CL 105 mEq/L (98-107); ESTIMATED GFR 82 mL/min (>60); GLUCOSE RANDOM 138 mg/dL (70-99); POTASSIUM,K 3.3 mEq/L (3.5-5.1); PROTEIN TOTAL,TP 6.7 g/dl (6.4-8.2); SODIUM,NA 140 mEq/L (136-145)
[2023-06-17 18:04] LABS: BASOPHILS ABSOLUTE AUTO 0.1 K/mm3 (0.0-0.2); BASOPHILS PERCENT AUTO 0.7 % (0.0-1.0); EOSINOPHILS ABSOLUTE AUTO 1.1 K/mm3 (0.0-0.4); EOSINOPHILS PERCENT AUTO 12.4 % (0.0-6.0); HEMATOCRIT 41.2 % (37.0-47.0); HEMOGLOBIN 14.7 gm/dl (12.0-16.0); IMMATURE GRAN ABSOLUTE AUTO 0.02 K/mm3 (0.00-0.05); IMMATURE GRAN PERCENT AUTO 0.2 % (0.0-0.4); LYMPHOCYTES PERCENT AUTO 23.1 % (24.0-44.0); MEAN CORPUSCULAR HEMOGLOBIN 31.4 pg (28.0-32.0); MEAN CORPUSCULAR HGB CONC 35.7 g/dl (32.0-36.0); MEAN PLATELET VOLUME 9.2 fl (9.4-12.3); MONOCYTES ABSOLUTE AUTO 0.6 K/mm3 (0.0-0.8); MONOCYTES PERCENT AUTO 6.6 % (0.0-8.0); NEUTROPHILS ABSOLUTE AUTO 4.8 K/mm3 (1.8-7.7); PLATELET COUNT,PLT 264 K/mm3 (150-400); RED BLOOD CELL COUNT 4.68 M/mm3 (4.10-5.30); WHITE BLOOD CELL COUNT,WBC 8.48 K/mm3 (3.9-11.3)
[2023-06-17] MEDS: cefTRIAXone 2 GM in Sodium Chloride 0.9% 100 ML IV ONE (19:13)
== END 2023-06-17 20:05 | disposition home or self-care (01) ==
LOC: JD.ED 17:06
DX: J45.41 Moderate persistent asthma with (acute) exacerbation (principal); J18.9 Pneumonia, unspecified organism; F17.210 Nicotine dependence, cigarettes, uncomplicated; Z86.16 Personal history of COVID-19; Z79.899 Other long term (current) drug therapy
CPT/HCPCS: 36415; 71045; 80053; 85025; 86140; 94640; 96365; 96375; 99285; J0696; J2930; J3490; 99284; J7620-GY